=== PATIENT | female | born 1960 | race Caucasian/White ===

== ENCOUNTER → 2016-08-17 | Outpatient (CLI) | payer BC, OTHER ==
--- NOTE | 2016-08-17 09:25 | REP ---
Nephrolithiasis. Technique: Single supine view of the abdomen and pelvis. Comparison: 12/26/2015. Findings: Small bilateral intrarenal calculi are suggested measuring 2 mm in the lower pole right kidney and 3 mm in the mid pole left kidney. The bowel gas pattern is nonspecific. No organomegaly. Skeletal structures are intact. Phleboliths noted in the pelvis. Impression: 3 mm nonobstructing left renal calculus and possible 2 mm nonobstructing right renal calculus. Signed by Papito Flores MD 08/17/2016 09:17 A
== END ==
LOC: M SMT 08:02
PROVIDERS: ATTEND Nurse Practitioner Women's Health
DX: N20.0 Calculus of kidney (principal)

== ENCOUNTER 2018-03-13 17:24 | Emergency (ER) | payer BC, OTHER ==
[2018-03-13 18:25] LABS: BASO % 0.2 % (0.0-1.0); EOS % 0.2 % (0.0-3.0); HEMATOCRIT 38.3 % (36.0-47.0); HEMOGLOBIN 13.2 g/dl (12.0-15.5); IMMATURE GRANULOCYTE % 0.5 % (0-3.0); LYMPH # 0.8 10^3/uL (1.5-4.5); LYMPH % 7.7 % (24.0-44.0); MEAN CORPUSCULAR HEMOGLOBIN 32.3 pg (27.0-33.0); MEAN CORPUSCULAR HGB CONC 34.5 g/dl (32.0-36.5); MEAN CORPUSCULAR VOLUME 93.6 fl (80.0-96.0); MONO # 0.5 10^3/uL (0.0-0.8); MONO % 5.4 % (0.0-5.0); NEUTROPHILS # 8.5 10^3/uL (1.8-7.7); PLATELET COUNT, AUTOMATED 216 10^3/uL (150-450); RED BLOOD COUNT 4.09 10^6/uL (4.00-5.40); RED CELL DISTRIBUTION WIDTH 11.8 % (11.5-14.5); WHITE BLOOD COUNT 9.9 10^3/uL (4.0-10.0)
[2018-03-13 18:28] LABS: KETONE, URINE AUTO RFX 1+ mg/dL (NEGATIVE); LEUKOCYTE ESTERASE UR AUTO RFX 3+ (NEGATIVE); MUCUS, URINE RFX SMALL (NEGATIVE); NITRITE, URINE AUTO RFX NEGATIVE (NEGATIVE); RBC, URINE AUTO RFX 4 /HPF (0-3); SPECIFIC GRAVITY UR AUTO RFX 1.031 (1.002-1.035); SQUAM EPITHELIAL CELL UR AURFX 0 /HPF (0-6); WBC, URINE AUTO RFX 94 /HPF (0-3)
[2018-03-13 18:56] LABS: ANION GAP 10 MEQ/L (8-16); BLOOD UREA NITROGEN 17 MG/DL (7-18); CALCIUM LEVEL 9.2 MG/DL (8.5-10.1); CARBON DIOXIDE LEVEL 27 MEQ/L (21-32); CHLORIDE LEVEL 101 MEQ/L (98-107); CREATININE FOR GFR 1.19 MG/DL (0.55-1.30); GLOMERULAR FILTRATION RATE 49.8 (>51); GLUCOSE, FASTING 123 MG/DL (70-100); POTASSIUM SERUM 4.1 MEQ/L (3.5-5.1); SODIUM LEVEL 138 MEQ/L (136-145)
[2018-03-13] MEDS: ACETAMINOPHEN 325 MG TAB PO (19:26)
[2018-03-13] MEDS: ONDANSETRON 4MG/2ML VIAL (J2405) IV (19:30)
[2018-03-13] MEDS: NS 1,000 ML IV (19:30)
[2018-03-13] MEDS: KETOROLAC 30 MG/ML VIAL (J1885) IV (19:30)
[2018-03-13] MEDS: CIPROFLOXACIN 400 MG in APPROPRIATE DILUENT 1 EA IV (19:45)
[2018-03-13 21:06] LABS: LACTIC ACID SEPSIS PROTOCOL 1.9 MMOL/L (0.4-2.0)
== END 2018-03-13 22:26 | disposition home or self-care (01) ==
LOC: M ED 17:24
DX: N12 Tubulo-interstitial nephritis, not specified as acute or chronic (principal); N20.1 Calculus of ureter; I10 Essential (primary) hypertension; E78.5 Hyperlipidemia, unspecified; E03.9 Hypothyroidism, unspecified
CPT/HCPCS: J2405

== ENCOUNTER → 2018-04-01 | Outpatient (CLI) | payer BC, OTHER ==
[~2018-04-01] MED LIST: BLAC40CA2 PO; CIPR-249 PO; FISH120016 PO; FLOM0.4C39 PO; HYDR25TAB PO; LEVO75TA4 PO; LISI-542 PO; NORCOTAB PO; VITA50005 PO; VITA500T PO
--- NOTE | 2018-04-02 06:35 | REP ---
Clinical: Follow up left-sided obstructive uropathy. Comparison: 03/13/2018. Technique: Axial noncontrast images from the lung bases to the pubic symphysis with coronal and sagittal re-formations. Findings: Current examination demonstrates the previously noted obstructing calculus in the left ureteropelvic junction now within the lower pole of the left kidney without hydroureternephrosis. Right kidney demonstrates stable 2 mm nonobstructing calculus. Liver, spleen, pancreas, gallbladder, and bilateral adrenal glands are normal. Enteric system is without obstruction or acute inflammatory process. Normal terminal ileum and appendix identified in the right lower quadrant. Pelvis demonstrates normal bladder and evidence for prior hysterectomy. No ascites. No free air. No adenopathy. Abdominal aorta without aneurysm. Musculoskeletal structures demonstrate stable degenerative changes. Impression: 1. Previously noted 6 mm obstructing calculus in the left ureteropelvic junction is now identified within the lower pole of the left kidney and without hydroureteronephrosis. 2. Stable 2 mm nonobstructing right renal calculus. Electronically Signed by Papito Flores MD 04/02/2018 06:26 A
== END ==
LOC: M RAD 16:31
PROVIDERS: ATTEND Nurse Practitioner Women's Health
DX: N20.0 Calculus of kidney (principal)

== ENCOUNTER → 2018-05-05 | Outpatient (REF) | payer BC, OTHER ==
[2018-05-05 18:45] LABS: HEMATOCRIT 36.9 % (36.0-47.0); HEMOGLOBIN 12.2 g/dl (12.0-15.5); MEAN CORPUSCULAR HEMOGLOBIN 31.4 pg (27.0-33.0); MEAN CORPUSCULAR HGB CONC 33.1 g/dl (32.0-36.5); MEAN CORPUSCULAR VOLUME 94.9 fl (80.0-96.0); PLATELET COUNT, AUTOMATED 352 10^3/uL (150-450); RED BLOOD COUNT 3.89 10^6/uL (4.00-5.40); WHITE BLOOD COUNT 5.9 10^3/uL (4.0-10.0)
[2018-05-05 19:06] LABS: INR 0.94; PARTIAL THROMBOPLASTIN TIME 32.1 SECONDS (25.4-37.6); PROTHROMBIN TIME 12.7 SECONDS (12.1-14.4)
[2018-05-05 19:08] LABS: CALCIUM LEVEL 9.7 MG/DL (8.5-10.1); CREATININE FOR GFR 1.02 MG/DL (0.55-1.30); GLOMERULAR FILTRATION RATE 59.3 (>51); POTASSIUM SERUM 4.5 MEQ/L (3.5-5.1)
== END ==
LOC: M LABSMT 16:58
PROVIDERS: ATTEND Nurse Practitioner Women's Health
DX: N20.0 Calculus of kidney (principal); Z01.812 Encounter for preprocedural laboratory examination

== ENCOUNTER → 2018-05-05 | Outpatient (REF) | payer OTHER ==
[2018-05-05 19:02] LABS: APPEARANCE, URINE CLEAR (CLEAR); BACTERIA, URINE AUTO NEGATIVE (NEGATIVE); BILIRUBIN, URINE AUTO NEGATIVE (NEGATIVE); BLOOD, URINE BLOOD NEGATIVE (NEGATIVE); COLOR, URINE YELLOW (YELLOW); GLUCOSE, URINE (UA) AUTO NEGATIVE (NEGATIVE); KETONE, URINE AUTO NEGATIVE (NEGATIVE); LEUKOCYTE ESTERASE, URINE AUTO NEGATIVE (NEGATIVE); MUCUS, URINE SMALL (NEGATIVE); NITRITE, URINE AUTO NEGATIVE (NEGATIVE); PROTEIN, URINE AUTO NEGATIVE (NEGATIVE); RBC, URINE AUTO 0 /HPF (0-3); SPECIFIC GRAVITY URINE AUTO 1.015 (1.002-1.035); SQUAMOUS EPITHELIAL CELL UR AU 0 /HPF (0-6); UROBILINOGEN, URINE AUTO 0.2 mg/dL (0.0-2.0); WBC, URINE AUTO 1 /HPF (0-3)
== END ==
LOC: M SMT 17:06
PROVIDERS: ATTEND Nurse Practitioner Women's Health
DX: N20.0 Calculus of kidney (principal); Z01.812 Encounter for preprocedural laboratory examination

== ENCOUNTER 2018-05-22 07:53 | Day surgery (SDC) | payer BC, OTHER ==
[~2018-05-22] VITALS: Ht 157.5 cm; Wt 76.7 kg
[~2018-05-22 07:53] MED LIST changes: +LR 1,000 ML IV ONE
--- NOTE | 2018-05-22 09:07 | REP ---
KUB: Single view. History: Preoperative testing. Comparison study: March 21, 2018. Findings: Bowel gas pattern is normal. There are phleboliths in the pelvis. Psoas margins and flank stripes are intact. There is no evidence of mass, organomegaly, or other pathologic calcification. The previously noted triangular calcification projecting at the upper pole left kidney is not visible today. Impression: No urinary tract calculus seen. Electronically Signed by Armen Overton MD 05/22/2018 08:59 A
[2018-05-22] MEDS ORDERED: fentaNYL 100 MCG/2 ML INJECTION (J3010) As Ordered ONE (09:17)
[2018-05-22] MEDS ORDERED: ONDANSETRON 4MG/2ML VIAL (J2405) As Ordered ONE (09:17)
[2018-05-22] MEDS ORDERED: LIDOCAINE 2% INJ 100 MG/5 ML SDV (FOR ANES.) As Ordered ONE (09:17)
[2018-05-22] MEDS ORDERED: MIDAZOLAM INJ 2 MG/2 ML VIAL (J2250) As Ordered ONE (09:17)
[2018-05-22] MEDS ORDERED: dexameTHASONE 4 MG/ML 1ML VIAL (J1100) As Ordered ONE (09:17)
[2018-05-22 11:30] VITALS: BP 135/66
[2018-05-22 11:52] LABS: APPEARANCE, URINE CLEAR (CLEAR); BACTERIA, URINE AUTO NEGATIVE (NEGATIVE); BILIRUBIN, URINE AUTO NEGATIVE (NEGATIVE); BLOOD, URINE BLOOD NEGATIVE (NEGATIVE); COLOR, URINE YELLOW (YELLOW); GLUCOSE, URINE (UA) AUTO NEGATIVE (NEGATIVE); KETONE, URINE AUTO NEGATIVE (NEGATIVE); LEUKOCYTE ESTERASE, URINE AUTO NEGATIVE (NEGATIVE); MUCUS, URINE SMALL (NEGATIVE); NITRITE, URINE AUTO NEGATIVE (NEGATIVE); PROTEIN, URINE AUTO NEGATIVE (NEGATIVE); RBC, URINE AUTO 4 /HPF (0-3); SPECIFIC GRAVITY URINE AUTO 1.019 (1.002-1.035); SQUAMOUS EPITHELIAL CELL UR AU 5 /HPF (0-6); UROBILINOGEN, URINE AUTO 0.2 mg/dL (0.0-2.0); WBC, URINE AUTO 3 /HPF (0-3)
--- NOTE | 2018-05-22 12:55 | RO ---
DATE OF PROCEDURE: 05/22/2018 PREPROCEDURE DIAGNOSIS: Left kidney stone. POSTPROCEDURE DIAGNOSIS: Left kidney stone. PROCEDURE: Aborted left extracorporeal shock wave lithotripsy. SURGEON: Cesar Stuart MD [employer] WORKER: None. ANESTHESIA: Monitored anesthesia care (MAC). OPERATIVE INDICATIONS: This is a 58-year-old female who was found to have a 6-7 mm nonobstructing lower pole left kidney stone approximately 1 month ago. She is brought to the operating room today for an attempted left extracorporeal shock wave lithotripsy. DESCRIPTION OF PROCEDURE: The patient was brought to the operating room and MAC anesthesia was administered. Prophylactic antibiotics were infused. She was then placed in supine position in preparation for a left extracorporeal shock wave lithotripsy. Fluoroscopy and ultrasonography were then utilized to try to locate and try to get the stone. Of note, approximately 10-15 minutes were spent trying to locate the stone and the stone could not be found anywhere inside the left kidney. This was surprising since the patient denied having any left flank or abdominal pain since her original CAT scan was done about a month ago. Since we were not able to locate the stone, the procedure was aborted at this time. The patient was then awakened from anesthesia and transported to recovery room in stable condition. ESTIMATED BLOOD LOSS: 0 mL. COMPLICATIONS: None. SPECIMENS: None. PLAN: I will get a urinalysis to check for red blood cells in the urine. If there are no red blood cells, this will indicate that the stone has likely passed. If there are red blood cells it would indicate the stone is likely somewhere inside of the ureter, and if this is the case, we will need to get a CAT scan to better locate where it is and then determine if any additional treatment is needed. [place]
== END 2018-05-22 11:35 | disposition home or self-care (01) ==
LOC: M SDC 07:53
PROVIDERS: ATTEND Urology
DX: N20.0 Calculus of kidney (principal); I10 Essential (primary) hypertension; E03.9 Hypothyroidism, unspecified; Z79.899 Other long term (current) drug therapy; Z85.43 Personal history of malignant neoplasm of ovary
CPT/HCPCS: 50590; 74018; 81001; J0690; J1100; J2250; J2405; J3010

== ENCOUNTER → 2018-10-29 | Outpatient (CLI) | payer BC, OTHER ==
[~2018-10-29] MED LIST changes: +HYDR-3715 PO; -LR 1,000 ML IV ONE; -NORCOTAB PO
--- NOTE | 2018-10-30 03:08 | REP ---
Clinical: Kidney stone. Technique: Single supine view of the abdomen and pelvis. Comparison: 05/22/2018 Findings: Evaluation for nephroureterolithiasis is severely limited due to overlying bowel gas and technique. Small intrarenal and/or ureteral calcifications cannot be excluded. Phleboliths noted in the pelvis. Bowel gas pattern is nonspecific. Skeletal structures intact. Impression: Limited evaluation for nephroureterolithiasis. Electronically Signed by Papito Flores MD 10/30/2018 02:59 A
== END ==
LOC: M SMT 15:37
PROVIDERS: ATTEND Urology
DX: N20.0 Calculus of kidney (principal); I87.8 Other specified disorders of veins

== ENCOUNTER → 2018-10-29 | Outpatient (REF) | payer OTHER ==
[2018-10-29 18:19] LABS: APPEARANCE, URINE HAZY (CLEAR); BACTERIA, URINE AUTO 1+ (NEGATIVE); BILIRUBIN, URINE AUTO NEGATIVE (NEGATIVE); BLOOD, URINE BLOOD NEGATIVE (NEGATIVE); COLOR, URINE YELLOW (YELLOW); GLUCOSE, URINE (UA) AUTO NEGATIVE (NEGATIVE); KETONE, URINE AUTO NEGATIVE (NEGATIVE); LEUKOCYTE ESTERASE, URINE AUTO 1+ (NEGATIVE); MUCUS, URINE SMALL (NEGATIVE); NITRITE, URINE AUTO NEGATIVE (NEGATIVE); PROTEIN, URINE AUTO NEGATIVE (NEGATIVE); RBC, URINE AUTO 1 /HPF (0-3); SPECIFIC GRAVITY URINE AUTO 1.019 (1.002-1.035); SQUAMOUS EPITHELIAL CELL UR AU 0 /HPF (0-6); UROBILINOGEN, URINE AUTO 0.2 mg/dL (0.0-2.0); WBC, URINE AUTO 22 /HPF (0-3)
== END ==
LOC: M SMT 17:29
PROVIDERS: ATTEND Urology
DX: N20.0 Calculus of kidney (principal)

== ENCOUNTER → 2021-04-06 | Outpatient (REF) | payer BC, OTHER ==
[~2021-04-06] MED LIST changes: +HYDR-3490 PO; -HYDR25TAB PO; -LISI-542 PO; +LISI5TAB11 PO; +VITA-243 PO; -VITA500T PO
[2021-04-06 14:08] LABS: APPEARANCE, URINE CLEAR (CLEAR); BACTERIA, URINE AUTO 1+ (NEGATIVE); BILIRUBIN, URINE AUTO NEGATIVE (NEGATIVE); BLOOD, URINE BLOOD NEGATIVE (NEGATIVE); COLOR, URINE STRAW (YELLOW); GLUCOSE, URINE (UA) AUTO NEGATIVE (NEGATIVE); KETONE, URINE AUTO NEGATIVE (NEGATIVE); LEUKOCYTE ESTERASE, URINE AUTO NEGATIVE (NEGATIVE); MUCUS, URINE SMALL (NEGATIVE); NITRITE, URINE AUTO NEGATIVE (NEGATIVE); PROTEIN, URINE AUTO NEGATIVE (NEGATIVE); RBC, URINE AUTO 0 /HPF (0-3); SPECIFIC GRAVITY URINE AUTO 1.003 (1.002-1.035); SQUAMOUS EPITHELIAL CELL UR AU 0 /HPF (0-6); UROBILINOGEN, URINE AUTO 0.2 mg/dL (0.0-2.0); WBC, URINE AUTO 1 /HPF (0-3)
== END ==
LOC: M SMT 12:55
PROVIDERS: ATTEND Nurse Practitioner Women's Health
DX: R10.9 Unspecified abdominal pain (principal)

== ENCOUNTER → 2021-04-10 | Outpatient (CLI) | payer BC, OTHER | LOC: M PLAIMG 15:06 | PROVIDERS: ATTEND Nurse Practitioner Women's Health | DX: N20.0 Calculus of kidney (principal); R10.9 Unspecified abdominal pain; Z87.442 Personal history of urinary calculi ==

== ENCOUNTER → 2022-01-14 | Outpatient (CLI) | payer BC, OTHER ==
[~2022-01-14] MED LIST changes: +ATOR1TAB19 PO; +ERGO500029 PO; +LOSA100T45 PO
== END ==
LOC: M LABSMTC 11:16
PROVIDERS: ATTEND Anesthesiology
DX: Z01.818 Encounter for other preprocedural examination (principal); Z11.52 Encounter for screening for COVID-19

== ENCOUNTER 2022-01-17 10:08 | Day surgery (SDC) | payer BC, OTHER ==
[~2022-01-17] VITALS: Ht 157.5 cm; Wt 77.6 kg
[~2022-01-17 10:08] MED LIST changes: +NS 1,000 ML IV ONE
[2022-01-17] MEDS ORDERED: propofoL 200 MG/20 ML VIAL As Ordered ONE (11:29)
[2022-01-17] MEDS ORDERED: LIDOCAINE 2% 100MG/5ML SDV (FOR ANES.) As Ordered ONE (11:29)
[2022-01-17 12:05] VITALS: BP 126/60
== END 2022-01-17 12:16 | disposition home or self-care (01) ==
LOC: M OPP 10:08
PROVIDERS: ATTEND Surgery
DX: Z12.11 Encounter for screening for malignant neoplasm of colon (principal); Z86.010 Personal history of colon polyps; K57.30 Diverticulosis of large intestine without perforation or abscess without bleeding; K63.5 Polyp of colon; Z79.02 Long term (current) use of antithrombotics/antiplatelets; Z79.899 Other long term (current) drug therapy; I10 Essential (primary) hypertension; E03.9 Hypothyroidism, unspecified; M13.80 Other specified arthritis, unspecified site; Z87.442 Personal history of urinary calculi

== ENCOUNTER → 2022-04-09 | Outpatient (CLI) | payer BC, OTHER ==
[~2022-04-09] MED LIST changes: -NS 1,000 ML IV ONE
== END ==
LOC: M SOG 09:54
PROVIDERS: ATTEND Orthopaedic Surgery Hand Surgery
DX: M79.641 Pain in right hand (principal); M79.644 Pain in right finger(s)